=== PATIENT | male | born 1970 | race Caucasian/White ===

== ENCOUNTER → 2017-06-27 10:01 | Outpatient (CLI) | payer MEDICAID, SELFPAY ==
[2017-06-27 10:17] LABS: Basophils # 0.1 K/mm3 (0-0.2); Basophils % 0.6 % (0.1-2.0); Eosinophils # 0.1 K/mm3 (0.0-0.4); Eosinophils % 1.4 % (0.1-12.0); Hemoglobin 16.3 g/dL (14.1-18.0); Lymphocytes # 2.5 K/mm3 (0.7-4.5); Lymphocytes % 30.1 K/mm3 (10-50); Mean Corpuscular HGB Conc 33.3 g/dL (31.8-35.4); Mean Corpuscular Hemoglobin 29.9 pg (27.0-31.2); Mean Corpuscular Volume 89.9 fl (80-94); Mean Platelet Volume 7.4 fl (7.4-10.4); Monocytes # 0.5 K/mm3 (0.1-1.0); Monocytes % 6.5 % (1.7-9.3); Neutrophils % 61.3 % (37.0-80.0); Platelet Count 208 K/mm3 (142-424); Red Blood Count 5.45 M/mm3 (4.60-6.20); Red Cell Distribution Width 12.4 % (11.5-17.5); White Blood Count 8.2 K/mm3 (4.8-10.8)
[2017-06-27 11:48] LABS: Anion Gap 8.5 mEq/L (5-15); Blood Urea Nitrogen 6 mg/dL (7-18); Carbon Dioxide 32 mmol/L (21.0-32.0); Chloride 100 mmol/L (98-107); Creatinine,Serum 0.78 mg/dL (0.70-1.30); Estimated Glomerular Filt Rate 106 ml/min (>60); GFR (African American) 128 ML/MIN (>60); Glucose 87 mg/dL (74-106); Potassium 4.5 mmoL/L (3.5-5.1); Sodium 136 mmol/L (136-145)
== END ==
PROVIDERS: PCP Family Medicine; Visit Provider Surgery
DX: L72.9 Follicular cyst of the skin and subcutaneous tissue, unspecified (principal); Z01.818 Encounter for other preprocedural examination
CPT/HCPCS: 36415; 80048; 85025; 93005

== ENCOUNTER 2017-07-08 07:52 | Day surgery (SDC) | payer MEDICAID, SELFPAY ==
[2017-07-05 13:25] VITALS: BMI 23.5
[2017-07-08] VITALS (13 sets, daily range): BP systolic 132–157; BP diastolic 77–99; PULSE 70–86; RESP 12–18; TEMP 36.4–36.8; O2SAT 95–99
--- NOTE | 2017-07-08 09:32 | HMH.OPNOTE ---
Date of procedure: 07/08/17 Pre-op Diagnosis:: Right posterior neck cyst (2 cm) Post-op diagnosis:: same Procedure performed:: Excision of right posterior neck cyst Surgeon:: Too Alvarez MD MANAGER MARKET INTELLIGENCE:: Joey Lincoln Anesthesia: LMA Estimated blood loss (mL): 5 Operative findings:: Lesion excised in toto and passed off for pathologic evaluation Operative note:: After informed consent was obtained, the patient was taken to the operating room and placed in the supine position. General anesthesia with laryngeal mask airway was achieved. The patient was transferred to the left lateral decubitus position his neck was prepped and draped in a sterile fashion. After infiltration with local anesthetic an elliptical incision was made around the lesion. The lesion was excised with combination of sharp dissection with scalpel and electrocautery. The dissection was taken through the deeper subcutaneous tissue to the level of the fascial margin. Once the lesion was removed, electrocautery was utilized to achieve hemostasis. Skin was closed with 4-0 nylon in an interrupted fashion. Things were applied and the patient was transferred to recovery in stable condition. Condition: stable Disposition: PACU Specimens:: Right posterior neck cyst (2 cm) Complications:: No immediate
--- NOTE | 2017-07-08 09:35 | P.OP_ITS ---
Date of procedure: 07/08/17 Pre-op Diagnosis:: Right posterior neck cyst (2 cm) Post-op diagnosis:: same Procedure performed:: Excision of right posterior neck cyst Surgeon:: Too Alvarez MD SAFETY INSTRUCTION POLICE OFFICER:: Joey Lincoln Anesthesia: LMA Estimated blood loss (mL): 5 Operative findings:: Lesion excised in toto and passed off for pathologic evaluation Operative note:: After informed consent was obtained, the patient was taken to the operating room and placed in the supine position. General anesthesia with laryngeal mask airway was achieved. The patient was transferred to the left lateral decubitus position his neck was prepped and draped in a sterile fashion. After infiltration with local anesthetic an elliptical incision was made around the lesion. The lesion was excised with combination of sharp dissection with scalpel and electrocautery. The dissection was taken through the deeper subcutaneous tissue to the level of the fascial margin. Once the lesion was removed, electrocautery was utilized to achieve hemostasis. Skin was closed with 4-0 nylon in an interrupted fashion. Things were applied and the patient was transferred to recovery in stable condition. Condition: stable Disposition: PACU Specimens:: Right posterior neck cyst (2 cm) Complications:: No immediate
--- NOTE | 2017-07-08 09:42 | HMH.ANESI ---
[facility] Anesthesia Record Part I Intake, IV Amount: 900 Estimated blood loss (mL): 20 Urine output (mL): 0 Blood Pressure: 155/89 SaO2: 97 Pulse Rate: 78 Respiratory Rate: 12 Temperature: 97.8 F Patient is:: Awake, Stable Stable to PACU at:: 09:40
--- NOTE | 2017-07-08 09:44 | P.PN_ITS ---
[facility] Anesthesia Record Part II Discharge Time: 10:10 Destination: [facility] PACU nurse assessment reviewed?: Yes Patient Condition:: Good Anesthesia Complications:: None
--- NOTE | 2017-07-08 09:44 | HMH.ANESII ---
[facility] Anesthesia Record Part II Discharge Time: 10:10 Destination: [facility] PACU nurse assessment reviewed?: Yes Patient Condition:: Good Anesthesia Complications:: None
== END 2017-07-08 11:10 | disposition home or self-care (01) ==
LOC: OR 07:54
PROVIDERS: Family Provider Family Medicine; PCP Family Medicine; Visit Provider Surgery
PROC: (CPT 11422; principal; 2017-07-08 09:15)
DX: D48.5 Neoplasm of uncertain behavior of skin (principal)
CPT/HCPCS: 11422; 96374; J2405

== ENCOUNTER → 2018-06-30 09:47 | Outpatient (CLI) | payer MEDICAID, SELFPAY ==
--- NOTE | 2018-06-30 09:52 | XR_ITS ---
XR hand LT min 3V HISTORY: ITS.REASON: Lt hand pain ORDERING PHYSICIAN: Jeniffer Segovia MD PATIENT AGE: 48 years COMPARISON: None FINDINGS: No fracture or dislocation. There is normal mineralization.. The joint spaces are well-preserved. No significant degenerative/arthritic changes. There is a defect at the tip of the distal phalanx of the third finger which may be due to an old injury. No abnormal soft tissue calcification or other significant anomalies. IMPRESSION: Small defect at the tip of the distal phalanx of the third digit which may be due to an old injury otherwise negative
== END ==
PROVIDERS: PCP Family Medicine; Visit Provider Orthopaedic Surgery
DX: M79.642 Pain in left hand (principal)
CPT/HCPCS: 73130

== ENCOUNTER 2020-05-25 18:32 | Observation (INO) | payer OTHER, SELFPAY ==
[2020-05-25] VITALS (8 sets, daily range): BP systolic 122–146; BP diastolic 61–79; PULSE 71–100; RESP 15–20; TEMP 36.7–36.9; O2SAT 96–100; BMI 24.3; BMI 21.4
--- NOTE | 2020-05-25 | ECG_ITS ---
APPROVED REPORT Exam: Resting ECG HR:95 bpm ECG Measurements Heart Rate 95 AXES MD 130 P 74 QRSd 88 QRS 87 QT 364 T 81 QTc 457 Conclusion Normal sinus rhythm Normal ECG Electronically signed by : Darian Sexton, 05/26/2020 06:55:51
--- NOTE | 2020-05-25 18:33 | XR_ITS ---
PROCEDURE: XR CHEST PORTABLE CLINICAL HISTORY: cp Chest pain COMPARISON: No exams were available for comparison FINDINGS: The cardiomediastinal silhouette and pulmonary vascularity are within normal limits. The lungs are clear without infiltrates, suspicious nodules, or pleural effusions. No acute bony abnormalities. IMPRESSION: No acute findings. Dictated by: Manjit Hilton MD 05/26/2020 05:03 Manjit Hilton MD in OV 05/26/2020 05:03
--- NOTE | 2020-05-25 18:34 | HMH.EDGENADL ---
ED Disposition Condition on Discharge: Good - Critical Care Critical Care Time: No <Zeferino Leroy - Last Filed: 05/25/20 19:17> <Td Ahn - Last Filed: 05/25/20 21:08> Clinical Impression: Alcohol use, Tobacco use Chest pain Qualifiers: Chest pain type: unspecified Qualified Code(s): R07.9 - Chest pain, unspecified Disposition: Admitted as Observation Referrals: Darian Faulkner MD [Primary Care Provider] - Attestation: On 05/25/20, the high probability of a clinically significant, sudden or life threatening deterioration of the following system(s) required my full and direct attention, intervention and personal management. The time I documented below is in addition to time spent performing reported procedures but includes the following listed in this critical care notation. Medical Decision Making - Medical Records Medical records reviewed: Yes: I reviewed the patient's medical records. - Antonio Inquiry Pt receiving controlled substance: No - Lab Data Lab results reviewed: Yes: I reviewed the patient's lab results. Result diagrams: 05/25/20 18:30 05/25/20 18:30 <Zeferino Leroy - Last Filed: 05/25/20 19:17> - Lab Data Result diagrams: 05/25/20 18:30 05/25/20 18:30 - ECG Data Tracing #1 I reviewed this ECG and interpreted as documented below: Normal Sinus Rhythm: Yes Ischemic changes: non-specific ST-T wave changes - Physician Consults Physician Consulted: neus Reason -: Admission - VI Score for Non-Stemi Age of Patient: 50-59 years old Heart Rate: 70-89 bpm Systolic Blood Pressure: 120-139 mmhg Serum Creatinine: 0.40-0.79 mg/dl CHF Killip Class: I-No CHF Other Risk Factors: None Non-Stemi Risk Score: 88 <Td Ahn - Last Filed: 05/25/20 21:08> Vital Signs: 05/25/20 18:32 05/25/20 19:02 05/25/20 19:32 Temperature 98.3 F Temperature Source Oral Pulse Rate [Right] 88 85 83 Respiratory Rate 16 15 16 Blood Pressure [Right Arm] 122/76 128/71 132/72 Blood Pressure Mean [Right Arm] 91 90 92 Blood Pressure Source [Right Arm] Automatic Cuff Automatic Cuff Automatic Cuff Blood Pressure Position [Right Arm] Sitting Sitting Sitting 02 Sat by Pulse Oximetry 100 96 96 Oxygen Delivery Method Room Air Room Air Room Air 05/25/20 20:00 05/25/20 20:30 Temperature Temperature Source Pulse Rate [Right] 71 83 Respiratory Rate 16 16 Blood Pressure [Right Arm] 128/61 123/68 Blood Pressure Mean [Right Arm] 83 86 Blood Pressure Source [Right Arm] Automatic Cuff Automatic Cuff Blood Pressure Position [Right Arm] Sitting Sitting 02 Sat by Pulse Oximetry 98 97 Oxygen Delivery Method Room Air Room Air - Lab Data Lab Results 05/25/20 18:30: Troponin I < 0.01 05/25/20 18:30: WBC 8.4, RBC 5.16, Hgb 16.6, Hct 48.1, MCV 93.3, MCH 32.2 H, MCHC 34.6, RDW 13.4, Plt Count 249, MPV 7.2 L, Neut % (Auto) 56.3, Lymph % (Auto) 32.4, Adams % (Auto) 5.5, Eos % (Auto) 4.8, Baso % (Auto) 1.1, Neut # (Auto) 4.7, Lymph # (Auto) 2.7, Adams # (Auto) 0.5, Eos # (Auto) 0.4, Baso # (Auto) 0.1 05/25/20 18:30: Sodium 131 L, Potassium 3.9, Chloride 96 L, Carbon Dioxide 27, Anion Gap 11.9, BUN 4 L, Creatinine 0.70, Estimated Creat Clear 127, Estimated GFR 118, Est GFR ( Amer) 143, Glucose 92, Calcium 9.2, Total Bilirubin 0.5, AST 56, ALT 26, Alkaline Phosphatase 61, Total Protein 7.1, Albumin 4.4, Globulin 2.7, Albumin/Globulin Ratio 1.6 05/25/20 18:30: Plasma/Serum Alcohol 141 H Orders (Tests/Meds): ED MEDICATIONS Generic Name Dose Route Start Last Admin Trade Name Freq PRN Reason Stop Dose Admin Lactated Ringer's 500 mls @ 999 mls/hr 05/25/20 18:45 05/25/20 19:32 Lactated Ringer's 1000 Ml Bag IV 05/25/20 19:15 999 mls/hr .Q31M ROBERT Administration Sodium Chloride 10 ml 05/25/20 18:34 Sodium Chloride 0.9% 10ml Vial IV 06/24/20 18:33 NEEDED PRN to Dilute Lorazepam inj Discontinued Medications Generic Name Dose Route Start Last Admin Tr
[2020-05-25 18:54] LABS: Basophils # 0.1 K/mm3 (0-0.2); Basophils % 1.1 % (0.1-2.0); Eosinophils # 0.4 K/mm3 (0.0-0.4); Eosinophils % 4.8 % (0.1-12.0); Hematocrit 48.1 % (42.0-52.0); Hemoglobin 16.6 g/dL (14.1-18.0); Lymphocytes # 2.7 K/mm3 (0.7-4.5); Lymphocytes % 32.4 % (10-50); Mean Corpuscular HGB Conc 34.6 g/dL (31.8-35.4); Mean Corpuscular Hemoglobin 32.2 pg (27.0-31.2); Mean Corpuscular Volume 93.3 fl (80-94); Mean Platelet Volume 7.2 fl (7.4-10.4); Monocytes # 0.5 K/mm3 (0.1-1.0); Monocytes % 5.5 % (1.7-9.3); Neutrophils # 4.7 K/mm3 (1.8-7.8); Neutrophils % 56.3 % (37.0-80.0); Platelet Count 249 K/mm3 (142-424); Red Blood Count 5.16 M/mm3 (4.60-6.20); Red Cell Distribution Width 13.4 % (11.5-17.5); White Blood Count 8.4 K/mm3 (4.8-10.8)
[2020-05-25 18:57] LABS: Chloride 96 mmol/L (98-107); Sodium 131 mmol/L (136-145)
[2020-05-25 18:58] LABS: Potassium 3.9 mmoL/L (3.5-5.1)
[2020-05-25 19:00] LABS: Alanine Aminotransferase 26 U/L (12-78); Albumin Level 4.4 g/dl (3.5-5.0); Albumin/Globulin Ratio 1.6 (1.1-1.8); Alkaline Phosphatase 61 U/L (38-126); Anion Gap 11.9 mEq/L (5-15); Aspartate Amino Transferase 56 U/L (17-59); Bilirubin,Total 0.5 mg/dl (0.2-1.3); Blood Urea Nitrogen 4 mg/dl (9-20); Carbon Dioxide 27 mmol/L (22.0-30.0); Creatinine Clearance Estimated 127 mL/min (50-200); Estimated Glomerular Filt Rate 118 ml/min (>60); Ethyl Alcohol 141 mg/dl (0-10); GFR (African American) 143 ML/MIN (>60); Globulin 2.7 g/dL (1.3-3.2); Total Protein,Serum 7.1 g/dl (6.3-8.2)
[2020-05-25 19:01] LABS: Calcium 9.2 mg/dl (8.4-10.2); Glucose 92 mg/dl (74-100)
[2020-05-25 19:33] LABS: Troponin I < 0.01 ng/ml (0.00-0.034)
--- NOTE | 2020-05-25 20:46 | PC.NURSE ---
pt family member asked if pt was going to be discharged soon. this nurse explained that the pts trop level was taking longer than expected due to trouble with the machine in the lab and apologized for the inconvenience
[2020-05-25 21:36] LABS: Coronavirus 19 IgG Antibody Negative (Negative); Coronavirus 19 IgM Antibody Negative (Negative)
--- NOTE | 2020-05-25 22:23 | PC.NURSE ---
PT ARRIVED TO FLOOR VIA WHEELCHAIR @ [id number]
[2020-05-25 22:58] LABS: Troponin I < 0.01 ng/ml (0.00-0.034)
[2020-05-26] VITALS (18 sets, daily range): BP systolic 125–150; BP diastolic 63–114; PULSE 72–116; RESP 16–20; TEMP 36.6–37.3; O2SAT 94–100; BMI 21.4
--- NOTE | 2020-05-26 | IR_ITS ---
APPROVED REPORT Patient Location: Inpatient PROCEDURES Left heart catheterization Left ventriculogram Selective coronary angiogram Drug-eluting stent deployment to the proximal and mid dominant circumflex artery in a contiguous manner Informed consent was obtained prior to the procedure. COMPLICATIONS none Estimated Blood Loss: less than 10 mls TECHNIQUE One percent lidocaine used to anesthetize the right anterior aspect of the wrist. The right radial artery was accessed via the Seldinger technique. A 6 Andorran sheath was placed in the right radial artery. 2.5 mg of verapamil, 800 mcg of nitroglycerin, 1mg Lidocaine and 5000 U Heparin were given through the arterial sheath. The trap catheter was also used to perform left heart catheterization, left ventriculogram and selective coronary angiogram. At the end of the procedure therapeutic heparin was administered giving a therapeutic ACT. A JL 3 guide catheter was placed in the left main artery and a Choice PT extra-support wire was placed distally in the circumflex artery. A 4 mm x 38 mm resolute jaciel stent was deployed in the proximal mid circumflex artery at 14 jalen. Following this a 3.5 x 26 mm resolute jaciel stent was then deployed in the mid segment at 16 jalen further reducing the mid stenosis. The balloon was brought back and deployed at 22 jalen to mesh the 4 mm 3.5 mm stent together. YASMANI-3 flow was present before and after the procedure. At the end of the procedure the apparatus was removed the sheath was removed good hemostasis was achieved using TR banding patient was transferred to the postop holding in stable condition ANGIOGRAPHIC RESULTS The left main artery Normal The left anterior descending artery Has proximal 10 to 20% smooth stenosis with remaining vessel normal The circumflex artery Is a large dominant vessel with a proximal 70% stenosis in the mid vessel 60% stenosis The right coronary artery Nondominant with a proximal 20% smooth stenosis The SANCHEZ ventriculogram reveals Normal 65% The left ventricular end-diastolic pressure 10 mmHg IMPRESSION Severe single-vessel coronary disease involving a large dominant circumflex artery Successful stenting of a large dominant proximal and mid circumflex artery with 2 drug-eluting stents reducing the severe stenosis to 0% Normal ejection fraction Normal left ventricular end-diastolic pressure PLAN 1. Brilinta and aspirin 2. LDL less than 55 3. Beta-blockers and ANGEL inhibitors 4. Avoidance of tobacco products 5. Cardiac rehabilitation Electronically signed by : Bob Vaughn, 05/26/2020 15:04:28
[2020-05-26 01:27] LABS: Troponin I < 0.01 ng/ml (0.00-0.034)
--- NOTE | 2020-05-26 04:18 | PC.NURSE ---
No acute changes noted. Pt has not c/o any chest pain or soa. Pt did state during assessment upon arrival to floor that he did have some heaviness in his chest. Has not required any pain medication thus far. VS are stable. Remains on RA. Lungs are diminished. He is a current smoker. He also drinks alcohol. Pt stated 6-8 beers per day. CIWA 0 at this time. Pt is NSR on telemetry. Will continue to monitor.
[2020-05-26 05:49] LABS: Basophils # 0.1 K/mm3 (0-0.2); Basophils % 1.1 % (0.1-2.0); Eosinophils # 0.2 K/mm3 (0.0-0.4); Eosinophils % 2.9 % (0.1-12.0); Hematocrit 47.5 % (42.0-52.0); Hemoglobin 16.1 g/dL (14.1-18.0); Lymphocytes # 1.3 K/mm3 (0.7-4.5); Lymphocytes % 17.5 % (10-50); Mean Corpuscular Hemoglobin 31.6 pg (27.0-31.2); Mean Corpuscular Volume 92.9 fl (80-94); Mean Platelet Volume 7.5 fl (7.4-10.4); Monocytes # 0.6 K/mm3 (0.1-1.0); Monocytes % 7.9 % (1.7-9.3); Neutrophils # 5.2 K/mm3 (1.8-7.8); Neutrophils % 70.5 % (37.0-80.0); Platelet Count 211 K/mm3 (142-424); Red Blood Count 5.11 M/mm3 (4.60-6.20); Red Cell Distribution Width 13.2 % (11.5-17.5); White Blood Count 7.4 K/mm3 (4.8-10.8)
[2020-05-26 06:00] LABS: Anion Gap 9.6 mEq/L (5-15); Blood Urea Nitrogen 4 mg/dl (9-20); Calcium 9.3 mg/dl (8.4-10.2); Carbon Dioxide 30 mmol/L (22.0-30.0); Chloride 100 mmol/L (98-107); Chol/HDL Ratio 1.9 (1-3.5); Cholesterol 168 mg/dl (140-200); Creatinine Clearance Estimated 125 mL/min (50-200); Estimated Glomerular Filt Rate 118 ml/min (>60); GFR (African American) 143 ML/MIN (>60); Glucose 91 mg/dl (74-100); HDL Cholesterol 88 mg/dl (40-60); Magnesium 2.7 mg/dl (1.6-2.3); Potassium 4.6 mmoL/L (3.5-5.1); Sodium 135 mmol/L (136-145); Triglycerides 51 mg/dl (30-150); VLDL Cholesterol 10 mg/dL (0-40)
[2020-05-26 06:10] LABS: Direct LDL Cholesterol 73.65 mg/dL (100-129)
--- NOTE | 2020-05-26 07:45 | HMH.HP ---
*Admission Date: 05/25/20 *Chief complaint: Burning chest pressure *History of present illness: 50-year-old male who has not actually been to the office in several years presented to the emergency department via EMS after onset of a burning chest tightness that was anterior and spread across the chest. Pain was not relieved with Maalox at home. Pain did resolve a few minutes after being administered aspirin and nitroglycerin by EMS. Patient was brought to the emergency department. EKG was unrevealing and troponin was negative. Patient was admitted for rule out of an [place] with serial EKG and enzymes. Patient is ruled out overnight. He has not had any further chest discomfort and currently is in process of getting in echocardiogram. Cardiovascular risk factors include a 48-nfec-frya history of smoking and positive family history with a father dying from a heart attack at age 62 and a brother with known coronary artery disease [facility] History I have reviewed the patient's past medical history: Yes Medical History: Denies:: Cancer, Diabetes Mellitus Type 1, Diabetes Mellitus Type 2, MRSA, Seizures *Have you ever received a pneumonia vaccine?: No *Have you received a flu vaccine this season?: No Other Medical History: Denies: Blood Transfusion Reaction Laterality Cases: Right: Arthroscopy Knee, Bilateral: Tonsillectomy Other Surgeries: Yes: Hernia Repair, Other Amputation: No Fractures: No - *Social History Last grade of school completed: High school graduate Smoking Status: Current some day smoker Tobacco Type: cigarettes # Packs/Day (cigarettes): 2 Alcohol Intake: current Alcohol Intake Frequency:: 3 or more drinks per day Substance Use Type: denies use *Occupational Status:: employed Housing: house Household Members: spouse *Travel in the last 8 weeks: None Family Hx:: Cancer, Diabetes, Heart Attack, Hypertension Review of Systems - Constitutional Denies anorexia, Denies body ache(s), Denies chills, Denies lack of energy - *Cardiovascular Reports chest pain, Reports chest pain at rest, Denies excessive sweating, Denies shortness of breath with activity, Denies generalized swelling, Denies irregular heart rhythm - *Respiratory Denies change in phlegm color, Denies chest congestion, Denies cough - *Gastrointestinal Denies belching, Denies heartburn - *Genitourinary Denies difficulty urinating - Integumentary/Breasts Denies hair loss, Denies bleeding lesions - Psychiatric Denies abnormal sleep pattern Meds Home Medications Medication Instructions Recorded Confirmed Type No Known Home Medications 06/27/17 05/25/20 History Allergies Allergy/AdvReac Type Severity Reaction Status Date / Time No Known Allergies Allergy Verified 05/25/20 22:03 Exam Vital signs and Labs for Last 24 Hours: Temp Pulse Resp BP Pulse Ox 99.1 F 92 H 18 141/85 H 94 L 05/26/20 04:00 05/26/20 04:00 05/26/20 04:00 05/26/20 04:00 05/26/20 04:00 Laboratory Results - last 24 hr 05/25/20 18:30: Troponin I < 0.01 05/25/20 18:30: WBC 8.4, RBC 5.16, Hgb 16.6, Hct 48.1, MCV 93.3, MCH 32.2 H, MCHC 34.6, RDW 13.4, Plt Count 249, MPV 7.2 L, Neut % (Auto) 56.3, Lymph % (Auto) 32.4, Anson % (Auto) 5.5, Eos % (Auto) 4.8, Baso % (Auto) 1.1, Neut # (Auto) 4.7, Lymph # (Auto) 2.7, Anson # (Auto) 0.5, Eos # (Auto) 0.4, Baso # (Auto) 0.1 05/25/20 18:30: Sodium 131 L, Potassium 3.9, Chloride 96 L, Carbon Dioxide 27, Anion Gap 11.9, BUN 4 L, Creatinine 0.70, Estimated Creat Clear 127, Estimated GFR 118, Est GFR ( Amer) 143, Glucose 92, Calcium 9.2, Total Bilirubin 0.5, AST 56, ALT 26, Alkaline Phosphatase 61, Total Protein 7.1, Albumin 4.4, Globulin 2.7, Albumin/Globulin Ratio 1.6 05/25/20 18:30: Plasma/Serum Alcohol 141 H 05/25/20 18:40: SARS-CoV-2 IgG Ab (Rapid) Negative, SARS-CoV-2 IgM Ab (Rapid) Negative 05/25/20 22:12: Troponin I < 0.01 05/26/20 00:50: Troponin I < 0.01 05/26/20 05:28: WBC 7.4, RBC 5.11, Hgb 16.1, Hct 47.5, MCV 9
--- NOTE | 2020-05-26 08:00 | CA_ITS ---
APPROVED REPORT EXAM: Comprehensive 2D, Doppler, and color-flow Echocardiogram Protective Service Specialist: Felicia Cabrera CRT Ht: 5 ft 8 in Wt: 160lbs BSA: 1.86 BP: 123/68 mmHg Indications: Chest Pain, DNI, Alcholism 2D Dimensions LVOT 1.82 cm (M/F) 1.5-2.5 M-Mode Dimensions RVDd 2.79 cm (0.9-2.6) LA Diam 2.89 cm (1.9-4.0) LVDd 4.91 cm (3.5-5.7) Ao Diam 4.05 cm (2.0-3.7) LVDs 4.10 cm (3.5-5.7) IVSd 1.28 cm (0.6-1.1) PWd 0.61 cm (0.6-1.1) EF (Teich) 34.60% FS 16.50% EDV (Teich) 113.40 mL ESV (Teich) 74.20 mL LV Diastology E Decel Time 150.00 (160-240 msec) E/A Ratio 0.68 MED E' 7.30 (< 7 cm/sec) E'/MED E' Ratio 5.92 (>14) LAT E' 11.40 (<10 cm/sec) E/LAT E' Ratio 3.79 (>14) Aortic Valve AO Peak GR. 3.10 mmHg Mitral Valve MV E Max Ignacio. 43.00 (40-130 cm/s) MV A Velocity 64.00 (40-130 cm/s) E/A Ratio 0.68 MV Decel. Time 150.00 (160-240 ms) MV PHT 44.00 ms Tricuspid Valve TR P. Velocity 101.00 cm/s Left Ventricle Left atrium is normal size, left ventricle is normal size, there is no concentric left ventricular hypertrophy, visually estimated ejection fraction 55% with no regional wall motion abnormality, diastolic parameters are inconclusive. Right Ventricle Right atrium and right ventricle are normal size and contractility. Aortic Valve Aortic valve is minimally thickened and fibrosed. There is no aortic stenosis or aortic insufficiency. Mitral Valve Mitral valve is grossly normal, there is trace mitral regurgitation. Tricuspid Valve Tricuspid valve grossly normal, there is trace tricuspid regurgitation, tricuspid regurgitation jet velocity is inadequate for calculation of the right ventricular systolic pressure. Pulmonic Valve Pulmonic valve is poorly visualized. Great Vessels Aortic root is normal size. Pericardium No significant pericardial effusion noted. Conclusion 1. Normal left ventricular size, preserved left ventricular systolic function, visually estimated ejection fraction 55% with no regional wall motion abnormality, diastolic parameters are inconclusive. 2. Trace mitral and tricuspid regurgitation. 3. No significant pericardial effusion noted. Electronically signed by : Kaleb Iqbal, 05/27/2020 05:40:16
--- NOTE | 2020-05-26 08:22 | HMH.CNCARD ---
History of Present Illness Consult date: 05/26/20 Requesting physician: Darian Faulkner Consult reason: chest pain Chief complaint: chest pain Additional Medical History:: 1. Strong family history of coronary artery disease, father at age 62 from a heart attack and brother with history of heart attack at age 52 2. Tobacco use, 1 to 2 packs/day 3. Daily alcohol use of 6 beers per day History of present illness: 50-year-old male who has not actually been to the office in several years presented to the emergency department via EMS after onset of a burning chest tightness that was anterior and spread across the chest. Pain was not relieved with Maalox at home. Pain did resolve a few minutes after being administered aspirin and nitroglycerin by EMS. Patient was brought to the emergency department. EKG was unrevealing and troponin was negative. Patient was admitted for rule out of an [place] with serial EKG and enzymes. Patient is ruled out overnight. He has not had any further chest discomfort and currently is in process of getting in echocardiogram. Cardiovascular risk factors include a 00-cfop-lggo history of smoking and positive family history with a father dying from a heart attack at age 62 and a brother with known coronary artery disease. The above per Dr. Faulkner. The patient confirms above account. He is very concerned about CAD due to strong FH of CAD in addition to his smoking. He denies any recent fever, chills, nausea, vomiting or diarrhea. [facility] History Medical History: Denies:: Cancer, Diabetes Mellitus Type 1, Diabetes Mellitus Type 2, MRSA, Seizures *Have you ever received a pneumonia vaccine?: No *Have you received a flu vaccine this season?: No Other Medical History: Denies: Blood Transfusion Reaction Laterality Cases: Right: Arthroscopy Knee, Bilateral: Tonsillectomy Other Surgeries: Yes: Hernia Repair, Other Amputation: No Fractures: No - *Social History Last grade of school completed: High school graduate Smoking Status: Current some day smoker Tobacco Type: cigarettes # Packs/Day (cigarettes): 2 Alcohol Intake: current Alcohol Intake Frequency:: 3 or more drinks per day Substance Use Type: denies use *Occupational Status:: employed Housing: house Household Members: spouse *Travel in the last 8 weeks: None Family Hx:: Cancer, Diabetes, Heart Attack, Hypertension Meds Home Medications Medication Instructions Recorded Confirmed Type No Known Home Medications 06/27/17 05/25/20 History Allergies Allergy/AdvReac Type Severity Reaction Status Date / Time No Known Allergies Allergy Verified 05/25/20 22:03 Exam Vital signs and Labs for Last 24 Hours: Temp Pulse Resp BP Pulse Ox 97.9 F 85 16 139/85 98 05/26/20 08:00 05/26/20 08:00 05/26/20 08:00 05/26/20 08:00 05/26/20 08:00 Laboratory Results - last 24 hr 05/25/20 18:30: Troponin I < 0.01 05/25/20 18:30: WBC 8.4, RBC 5.16, Hgb 16.6, Hct 48.1, MCV 93.3, MCH 32.2 H, MCHC 34.6, RDW 13.4, Plt Count 249, MPV 7.2 L, Neut % (Auto) 56.3, Lymph % (Auto) 32.4, Ellsworth % (Auto) 5.5, Eos % (Auto) 4.8, Baso % (Auto) 1.1, Neut # (Auto) 4.7, Lymph # (Auto) 2.7, Ellsworth # (Auto) 0.5, Eos # (Auto) 0.4, Baso # (Auto) 0.1 05/25/20 18:30: Sodium 131 L, Potassium 3.9, Chloride 96 L, Carbon Dioxide 27, Anion Gap 11.9, BUN 4 L, Creatinine 0.70, Estimated Creat Clear 127, Estimated GFR 118, Est GFR ( Amer) 143, Glucose 92, Calcium 9.2, Total Bilirubin 0.5, AST 56, ALT 26, Alkaline Phosphatase 61, Total Protein 7.1, Albumin 4.4, Globulin 2.7, Albumin/Globulin Ratio 1.6 05/25/20 18:30: Plasma/Serum Alcohol 141 H 05/25/20 18:40: SARS-CoV-2 IgG Ab (Rapid) Negative, SARS-CoV-2 IgM Ab (Rapid) Negative 05/25/20 22:12: Troponin I < 0.01 05/26/20 00:50: Troponin I < 0.01 05/26/20 05:28: WBC 7.4, RBC 5.11, Hgb 16.1, Hct 47.5, MCV 92.9, MCH 31.6 H, MCHC 34.0, RDW 13.2, Plt Count 211, MPV 7.5, Neut % (Auto) 70.5, Lymph % (Auto) 17.5, Ellsworth % (Auto) 7.9, Eos % (Auto) 2.
--- NOTE | 2020-05-26 08:57 | PC.NURSE ---
PT shaved for cath.
--- NOTE | 2020-05-26 09:15 | PC.NURSE ---
Report received from ROSENDO Peguero.
--- NOTE | 2020-05-26 13:45 | P.CONPHA_ITS ---
[facility] Pharmacy VTE Monitoring - Patient Demographics Admission date: 05/26/20 Report Date: 05/26/20 Time: 13:45 Allergies/Adverse Reactions: Patient Allergies No Known Allergies Allergy (Verified 05/25/20 22:03) Height: 1.83 m Weight: 71.668 kg Patient Problems: Current Active Problems Chest pain (Acute) Alcohol use (Acute) Tobacco use (Acute) Angina at rest (Acute) Family history of coronary artery disease in brother (Acute) Family history of coronary artery disease in father (Acute) - VTE Risk Labs: VTE Related Lab Results Hgb 16.1 g/dL (14.1-18.0) 05/26/20 05:28 Hct 47.5 % (42.0-52.0) 05/26/20 05:28 Plt Count 211 K/mm3 (142-424) 05/26/20 05:28 BUN 4 mg/dl (9-20) L 05/26/20 05:28 Creatinine 0.70 mg/dl (0.66-1.25) 05/26/20 05:28 Estimated Creat Clear 125 mL/min (50-200) 05/26/20 05:28 Was VTE Risk Assessment Performed: Yes VTE Score: 1 VTE Risk Level: Very Low Risk Clinical Trial Participant: No - Prophylaxis VTE Prophylaxis Ordered?: Yes Types of VTE Prophylaxis: TEDS Knee High Location of Applied Device: Bilateral Lower Extremeties
--- NOTE | 2020-05-26 14:25 | PC.NURSE ---
Pt taken to [facility] via w/c at this time by [facility] personnel.
[2020-05-26 15:11] LABS: CATHL Activated Clotting Time > 400 SEC (74-125)
--- NOTE | 2020-05-26 15:30 | PC.NURSE ---
Pt returned to floor via stretcher per agriculture laboratory technician personnel.
--- NOTE | 2020-05-26 16:00 | PC.NURSE ---
2MLS REMOVED FROM PESSURE DEVICE (RT WRIST)
--- NOTE | 2020-05-26 16:20 | PC.NURSE ---
2MLS OF AIR REMOVED FROM PRESSURE DEVICE.
--- NOTE | 2020-05-26 16:50 | PC.NURSE ---
2MLS REMOVED FROM PRESSURE DEVICE. NO LEAKAGE OR BLEEDING NOTED.
--- NOTE | 2020-05-26 17:22 | PC.NURSE ---
2MLS REMOVED FROM PRESSURE DEVICE (NO LEAKAGE NOTED).
--- NOTE | 2020-05-26 17:55 | PC.NURSE ---
2MLS OF AIR REMOVED FROM PRESSURE DEVICE (NO BLEEDING OR LEAKAGE NOTED)
--- NOTE | 2020-05-26 18:18 | PC.NURSE ---
2MLS REMOVED FROM PRESSURE DEVICE. NO BLEEDING NOTED.
--- NOTE | 2020-05-26 18:45 | PC.NURSE ---
2MLS OF AIR REMOVED FROM PRESSURE DEVICE. NO BLEEDING OR LEAKING NOTED.
--- NOTE | 2020-05-26 19:08 | PC.NURSE ---
REPORT GIVEN TO TECHNICAL DELIVERY MANAGER NURSE
[2020-05-27] VITALS: BP 139/79; PULSE 73; RESP 18; TEMP 36.4; O2SAT 98
--- NOTE | 2020-05-27 02:10 | PC.NURSE ---
2200- removed 2 ml of air from radialband 2230- removed 1 ml of air from radialband, noticed some oozing at site, added 3 ml of air 2330- removed 2ml of air from radialband 0015- removed 2ml of air from radialband 0050- removed 2ml of air from radialband no oozing at site at this time
[2020-05-27 04:00] VITALS: BP 131/80; PULSE 72; RESP 19; TEMP 36.4; O2SAT 99
[2020-05-27 05:02] VITALS: BMI 21.3
--- NOTE | 2020-05-27 06:45 | HMH.DCSUM ---
General - General Admission date:: 05/25/20 Discharge date: 05/27/20 HPI HPI: 50-year-old male who has not actually been to the office in several years presented to the emergency department via EMS after onset of a burning chest tightness that was anterior and spread across the chest. Pain was not relieved with Maalox at home. Pain did resolve a few minutes after being administered aspirin and nitroglycerin by EMS. Patient was brought to the emergency department. EKG was unrevealing and troponin was negative. Patient was admitted for rule out of an VA with serial EKG and enzymes. Patient is ruled out overnight. He has not had any further chest discomfort and currently is in process of getting in echocardiogram. Cardiovascular risk factors include a [id number] history of smoking and positive family history with a father dying from a heart attack at age 62 and a brother with known coronary artery disease Hospital Course Hospital Course: Patient ruled out for VA. Due to strong family history, smoking history, and presentation of angina patient was taken to the Otolaryngology Teacher with findings as follows: ANGIOGRAPHIC RESULTS The left main artery Normal The left anterior descending artery Has proximal 10 to 20% smooth stenosis with remaining vessel normal The circumflex artery Is a large dominant vessel with a proximal 70% stenosis in the mid vessel 60% stenosis The right coronary artery Nondominant with a proximal 20% smooth stenosis The SANCHEZ ventriculogram reveals Normal 65% The left ventricular end-diastolic pressure 10 mmHg IMPRESSION Severe single-vessel coronary disease involving a large dominant circumflex artery Successful stenting of a large dominant proximal and mid circumflex artery with 2 drug-eluting stents reducing the severe stenosis to 0% Normal ejection fraction Normal left ventricular end-diastolic pressure PLAN 1. Brilinta and aspirin 2. LDL less than 55 3. Beta-blockers and ANGEL inhibitors 4. Avoidance of tobacco products 5. Cardiac rehabilitation Patient was observed after his left heart catheterization. There were no complications. Discussion was had with patient about the importance of smoking cessation and he is going to make attempts to cut back . He did consent to use of nicotine patches. Patient was discharged home on the morning of May 27. Patient will follow up with Dr. Vaughn's office in my office in 1 week Objective Vital signs: Temp Pulse Resp BP Pulse Ox 97.6 F 72 19 131/80 99 05/27/20 04:00 05/27/20 04:00 05/27/20 04:00 05/27/20 04:00 05/27/20 04:00 no acute distress - *Routine Respiratory Exam Present: CTA bilaterally - *Routine Cardiovascular Exam Present: RRR - *Routine Abdominal Exam Present: soft, normoactive bowel sounds. Absent: tenderness Results Labs on day of discharge: Labs from last 24 hours 05/26/20 15:59 Activated Clotting Time > 400 H* DS: Diagnosis - Discharge Diagnosis (1) Angina at rest Status: Acute (2) Family history of coronary artery disease in brother Status: Acute (3) Family history of coronary artery disease in father Status: Acute (4) Alcohol use Status: Acute (5) Tobacco use Status: Acute Discharge Plan - Patient Discharge Instructions ACTIVITY: Continue current activity DIET: continue same diet Patient Instructions: How to Care for a Surgical Wound, Angina, Alcohol Use Disorder, Cardiac Catheterization, Coronary Stenting, Nicotine Addiction, DI for Angina, DI for Surgical Site Infection, DI for Chest Pain - Follow up Plan Follow up with: Darian Faulkner MD [Primary Care Provider] - 06/03/20 Bob Vaughn MD [Staff Physician] - 06/03/20 Disposition: Home, Self-[facility] Medications: Home Medications Medication Instructions Recorded Confirmed Type No Known Home Medications 06/27/17 05/25/20 History Aspirin [Aspirin 81mg chewable 81 mg PO DAILY #
[2020-05-27 06:56] LABS: Basophils # 0.1 K/mm3 (0-0.2); Basophils % 1.4 % (0.1-2.0); Eosinophils # 0.3 K/mm3 (0.0-0.4); Eosinophils % 4.4 % (0.1-12.0); Hematocrit 45.4 % (42.0-52.0); Hemoglobin 15.5 g/dL (14.1-18.0); Lymphocytes # 1.7 K/mm3 (0.7-4.5); Lymphocytes % 22.9 % (10-50); Mean Corpuscular HGB Conc 34.1 g/dL (31.8-35.4); Mean Corpuscular Hemoglobin 31.6 pg (27.0-31.2); Mean Corpuscular Volume 92.8 fl (80-94); Mean Platelet Volume 7.7 fl (7.4-10.4); Monocytes # 0.5 K/mm3 (0.1-1.0); Monocytes % 6.4 % (1.7-9.3); Neutrophils # 4.6 K/mm3 (1.8-7.8); Neutrophils % 64.8 % (37.0-80.0); Platelet Count 202 K/mm3 (142-424); Red Blood Count 4.89 M/mm3 (4.60-6.20); Red Cell Distribution Width 13.5 % (11.5-17.5); White Blood Count 7.2 K/mm3 (4.8-10.8)
[2020-05-27 07:05] LABS: Anion Gap 8.1 mEq/L (5-15); Blood Urea Nitrogen 7 mg/dl (9-20); Calcium 8.9 mg/dl (8.4-10.2); Carbon Dioxide 28 mmol/L (22.0-30.0); Chloride 103 mmol/L (98-107); Creatinine Clearance Estimated 109 mL/min (50-200); Estimated Glomerular Filt Rate 102 ml/min (>60); GFR (African American) 123 ML/MIN (>60); Glucose 93 mg/dl (74-100); Potassium 4.1 mmoL/L (3.5-5.1); Sodium 135 mmol/L (136-145)
--- NOTE | 2020-05-27 07:34 | HMH.PNCARD ---
Subjective Date: 05/27/20 Time: 07:34 Principal diagnosis: Angina pectoris Interval history: 50-year-old male admitted yesterday for unstable angina. Subsequently underwent coronary stenting of the circumflex artery with 2 drug-eluting stents. Symptoms of severe heartburn have resolved and patient feels ready to go home. No complications overnight. Exam Vital signs and Labs for Last 24 Hours: Temp Pulse Resp BP Pulse Ox 97.6 F 72 19 131/80 99 05/27/20 04:00 05/27/20 04:00 05/27/20 04:00 05/27/20 04:00 05/27/20 04:00 Laboratory Results - last 24 hr 05/26/20 15:59: Activated Clotting Time > 400 H* 05/27/20 06:36: WBC 7.2, RBC 4.89, Hgb 15.5, Hct 45.4, MCV 92.8, MCH 31.6 H, MCHC 34.1, RDW 13.5, Plt Count 202, MPV 7.7, Neut % (Auto) 64.8, Lymph % (Auto) 22.9, Emanuel % (Auto) 6.4, Eos % (Auto) 4.4, Baso % (Auto) 1.4, Neut # (Auto) 4.6, Lymph # (Auto) 1.7, Emanuel # (Auto) 0.5, Eos # (Auto) 0.3, Baso # (Auto) 0.1 05/27/20 06:36: Sodium 135 L, Potassium 4.1, Chloride 103, Carbon Dioxide 28, Anion Gap 8.1, BUN 7 L D, Creatinine 0.80, Estimated Creat Clear 109, Estimated GFR 102, Est GFR ( Amer) 123, Glucose 93, Calcium 8.9 I & O for Last 24 hours: Intake & Output 05/24/20 05/25/20 05/26/20 05/27/20 11:59 11:59 11:59 11:59 Intake Total 0 / 0 Output Total 2099 450 / 450 Balance -2099 / -2099 -450 / -450 Weight 158 lb 157 lb 8 oz - Constitutional no acute distress - *Routine HEENT Exam Head: Present: normocephalic Eye: Present: EOMI, PERRL ENT: Present: mucous membranes moist - *Routine Neck Exam Present: supple. Absent: lymphadenopathy - *Routine Respiratory Exam Present: CTA bilaterally - *Routine Cardiovascular Exam Present: RRR - *Routine Abdominal Exam Present: soft, normoactive bowel sounds. Absent: tenderness - *Routine Extremities Exam Absent: cyanosis, clubbing, edema - *Routine Skin Exam Present: warm. Absent: rash - *Routine Neurological Exam Present: alert, oriented X3 Progress Note: A&P (1) Angina at rest Status: Acute (2) Family history of coronary artery disease in brother Status: Acute (3) Family history of coronary artery disease in father Status: Acute (4) Alcohol use Status: Acute (5) Tobacco use Status: Acute Assessment and Plan for All Diagnoses:: Okay for discharge home from cardiology standpoint. Home medication recommendations include aspirin 81 mg daily, Brilinta 90 mg twice daily, atorvastatin 80 mg daily, lisinopril 2.5 mg daily and metoprolol succinate 25 mg daily. Nicotine patches have been ordered with encouragement to discontinue smoking. Follow-up in our office in 1 week or sooner if needed
[2020-05-27 08:00] VITALS: BP 149/78; PULSE 67; RESP 19; TEMP 36.4; O2SAT 99
--- NOTE | 2020-05-27 08:24 | PC.NURSE ---
late entry: received in report that pt had traclet still in place r/t when attempting to remove, site was noted to bleed. [place] unsure of amount that had been instilled in traclet. When i went to remove traclet, only 2 ml of air were noted to be inside. traclet later removed without incident. no bleeding noted. pt was instructed on s/s of infection bleeding and care of cath site. pt indicated understanding.
--- NOTE | 2020-05-27 08:52 | HMH.PHACLD ---
Zeferino Jones has received discharge medication counseling on the following medications: NEW MEDICATIONS: LISINOPRIL, BRILINTA, METOPROLOL, LIPITOR, ASPIRIN
--- NOTE | 2020-05-27 09:00 | PC.NURSE ---
discharge teaching provided with patient on appointment, post cath care, medications. reviewed contents of discharge packet. brilinta card provided to patient. patient and wifevoiced understanding of teachings, no questions from them
== END 2020-05-27 08:51 | disposition home or self-care (01) ==
LOC: ER 21:26 → 2ND 21:32
PROVIDERS: Emergency Medicine; Internal Medicine; Admitting Provider Family Medicine; Emergency Provider Physician Assistant; PCP Family Medicine; Visit Provider Family Medicine
DX: I25.118 Atherosclerotic heart disease of native coronary artery with other forms of angina pectoris (principal); R07.9 Chest pain, unspecified; F10.10 Alcohol abuse, uncomplicated; Z72.0 Tobacco use; Y90.6 Blood alcohol level of 120-199 mg/100 ml; Z82.49 Family history of ischemic heart disease and other diseases of the circulatory system
CPT/HCPCS: 36415; 71045; 80048; 80053; 80061; 83735; 84484; 85025; 85347; 86328; 92928; 93005; 93306; 93458; 96365; 96367; 96375; 99152; 99284; C1725; C1769; C1876; C9600; G0378; J1644; Q9967

== ENCOUNTER → 2020-06-03 14:08 | Outpatient (CLI) | payer OTHER, SELFPAY ==
[2020-06-03 14:24] LABS: Hematocrit 53.8 % (42.0-52.0); Hemoglobin 17.5 g/dL (14.1-18.0)
[2020-06-03 14:35] LABS: Blood Urea Nitrogen 6 mg/dl (9-20); Estimated Glomerular Filt Rate 89 ml/min (>60); GFR (African American) 107 ML/MIN (>60)
== END ==
PROVIDERS: Visit Provider Internal Medicine
DX: I25.10 Atherosclerotic heart disease of native coronary artery without angina pectoris (principal); I10 Essential (primary) hypertension; E78.2 Mixed hyperlipidemia; Z72.0 Tobacco use; F10.29 Alcohol dependence with unspecified alcohol-induced disorder; Z95.5 Presence of coronary angioplasty implant and graft
CPT/HCPCS: 36415; 82565; 84520; 85014; 85018

== ENCOUNTER → 2020-09-02 14:17 | Outpatient (CLI) | payer OTHER, SELFPAY ==
[2020-09-02 14:37] LABS: Basophils # 0.1 K/mm3 (0-0.2); Basophils % 1.3 % (0.1-2.0); Eosinophils # 0.4 K/mm3 (0.0-0.4); Eosinophils % 4.6 % (0.1-12.0); Hematocrit 43.3 % (42.0-52.0); Hemoglobin 14.4 g/dL (14.1-18.0); Lymphocytes # 1.6 K/mm3 (0.7-4.5); Lymphocytes % 20.9 % (10-50); Mean Corpuscular HGB Conc 33.4 g/dL (31.8-35.4); Mean Corpuscular Hemoglobin 31.5 pg (27.0-31.2); Mean Corpuscular Volume 94.3 fl (80-94); Mean Platelet Volume 7.2 fl (7.4-10.4); Monocytes # 0.5 K/mm3 (0.1-1.0); Monocytes % 6.6 % (1.7-9.3); Neutrophils # 5.2 K/mm3 (1.8-7.8); Neutrophils % 66.6 % (37.0-80.0); Platelet Count 262 K/mm3 (142-424); Red Blood Count 4.59 M/mm3 (4.60-6.20); Red Cell Distribution Width 12.7 % (11.5-17.5); White Blood Count 7.8 K/mm3 (4.8-10.8)
[2020-09-02 15:59] LABS: Chloride 97 mmol/L (98-107); Potassium 4.4 mmoL/L (3.5-5.1); Sodium 134 mmol/L (136-145)
[2020-09-02 16:01] LABS: Blood Urea Nitrogen 3 mg/dl (9-20); Estimated Glomerular Filt Rate 118 ml/min (>60); GFR (African American) 143 ML/MIN (>60)
[2020-09-02 16:02] LABS: Alanine Aminotransferase 61 U/L (12-78); Alkaline Phosphatase 66 U/L (38-126); Anion Gap 12.4 mEq/L (5-15); Aspartate Amino Transferase 56 U/L (17-59); Bilirubin,Direct 0.1 mg/dl (0.0-0.4); Bilirubin,Indirect 0.5 mg/dL (0.0-0.9); Bilirubin,Total 0.6 mg/dl (0.2-1.3); Bilirubin,Unconjugated 0.5 mg/dL (0.0-1.1); Calcium 9.8 mg/dl (8.4-10.2); Carbon Dioxide 29 mmol/L (22.0-30.0); Glucose 94 mg/dl (74-100); Total Protein,Serum 6.9 g/dl (6.3-8.2)
[2020-09-02 16:18] LABS: Free T4 (Free Thyroxine) 1.09 ng/dl (0.78-2.19)
[2020-09-02 16:31] LABS: Thyroid Stimulating Hormone 2.17 uIU/mL (0.465-4.68)
== END ==
PROVIDERS: Visit Provider Nurse Practitioner Family
DX: R06.00 Dyspnea, unspecified (principal); I25.10 Atherosclerotic heart disease of native coronary artery without angina pectoris; E78.2 Mixed hyperlipidemia; I10 Essential (primary) hypertension; R06.83 Snoring; R40.0 Somnolence; Z72.0 Tobacco use
CPT/HCPCS: 36415; 80048; 80076; 84439; 84443; 85025

== ENCOUNTER → 2020-09-09 07:46 | Outpatient (CLI) | payer OTHER, SELFPAY ==
--- NOTE | 2020-09-09 07:46 | NM_ITS ---
APPROVED REPORT Exam: Nuclear Stress Test Indication: CAD, High Cholesterol, Tobacco use, Family history Patient Location: Outpatient Stress Tech: Kimberly Ceja [place] Tech:Diamond Bonilla, ARRT, RT (R)(N) Ht: 6 ft 0 in Wt: 163 lbs HR: 93 bpm BP: 143/86 mmHg BSA: 1.95 m2 History: CAD, High Cholesterol, Tobacco use, Family history Procedure: Patient exercised on Miguel protocol 5:31 minutes and sec, resting heart rate 93 bpm, resting blood pressure 143/86 mmHg, with exercise maximum heart rate achived was 160 bpm which is Greater than 85 % of the maximum predicted heart rate and blood pressure was 192/84 mmHg. Test was stopped due to SOA and fatigue. Patient denied any complaint of chest pain. Patient has Adequate exercise capacity, achieved 7.0 METs of workload on treadmill, the blood pressure response to exercise was Adequate. Electrocardiogram Resting electrocardiogram showed sinus rhythm, with exercise there is less than 1.[address] segment depression noted from the baseline EKG. The EKG portion of the exercise Myoview is negative for ischemia. Cardiac Stress and Resting SPECT Images: Cardiac Stress and Resting SPECT images were obtained using technetium 99m Myoview 31.4 mCi stress and 10.99 mCi at rest. Gated SPECT for analysis of segmental wall motion and calculation of the ejection fraction also done. Prone images were also obtained. Cardiac stress and resting SPECT images show uniform myocardial activity without segmental perfusion abnormality, computer derived ejection fraction is 53% with no regional wall motion abnormality, right ventricle is normal size and contractility. Conclusion: 1. The EKG portion of the exercise Myoview is negative for ischemia, patient has adequate exercise capacity achieved 7 mets of workload on treadmill, the blood pressure response to exercise was adequate, there was no exercise-induced chest discomfort. 2. No scintigraphic evidence of reversible ischemia seen, computer derived ejection fraction 53% with no regional wall motion abnormality, right ventricle is normal size and contractility. 3. Normal exercise Myoview study. Electronically signed by : Kaleb Iqbal, 09/09/2020 18:28:33
--- NOTE | 2020-09-09 09:43 | HMH.ITSHM ---
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 []TICAGRELOR METOPROLOL LISINOPRIL ATORVASTATIN ASA
--- NOTE | 2020-09-09 12:19 | CA_ITS ---
APPROVED REPORT Exam: Exercise Treadmill Technologist: Kimberly Ceja, Ht: 6 ft 0 in Wt: 163 lbs BSA: 1.95 m2 HR: 93 bpm BP: 143/86 mmHg Medical History Medications: Lisinopril,,,,, Aspirin,,,,, Atorvastatin,,,,, Ticagrelor,,,,, Metoprolol Succinate ER,,,,, Stress Test Details Test: Manual Treadmill HR Resting HR: 109 bpm Max Heart Rate (APMHR): 168 bpm Max HR Achieved: 167 bpm Target HR (85% APMHR): 142 bpm % of APMHR: 99 Recovery HR: 110 bpm BP Resting BP: 141/78 mmHg Max BP: 192/84 mmHg Recovery BP: 155.0/92.0 mmHg ECG Resting ECG: NSR, ST-T abns inferiorly Clinical Exercise duration: 05:31 min Highest Stage Achieved: Exercise capacity: 7.0 METs Stress ECG Conclusion Exercised 5:31 om Miguel Protocol Max HR: 165 % of PM: 98% Max BP: 192/84 MET's: 7.0 Test stopped due to: SOA, fatigue Symptoms: No CP Arrhythmnias/Ectopy: Occ PVC, rare PAC ST-T Changes: Exaggeration of baseline ST abns in the inferior leads. Conclusion: Non-diagnostic Lexiscan stress. Reynold view images reported separately Test Summary REST . . . . . . . Sitting REST . . . . . . . Standing REST 05:24 0.0 0.0 109 . 141/ 78 . . Stage 1 01:00 10.0 1.7 122 . . . . Stage 1 02:00 10.0 1.7 149 . . . . Stage 1 03:00 10.0 1.7 147 . 192/ 84 . . Stage 2 01:00 12.0 2.5 155 . . . . Stage 2 . . . . . . . Protocol changed to Manual Treadmill Stage 2 02:00 12.0 2.2 161 . . . . Stage 2 02:31 12.0 2.2 167 . . . Stop exercise at 05:31 RECOVERY 01:00 0.0 0.0 143 . 176/ 80 . . RECOVERY 02:00 0.0 0.0 120 . 176/ 80 . . RECOVERY 03:00 0.0 0.0 120 . 160/ 86 . . RECOVERY 04:00 0.0 0.0 115 . 160/ 85 . . RECOVERY 05:00 0.0 0.0 110 . 160/ 85 . . RECOVERY 06:00 0.0 0.0 116 . 155/ 92 . . RECOVERY 06:17 0.0 0.0 108 . 155/ 92 . . Electronically signed by : Kaleb Iqbal, 09/09/2020 18:12:09
== END ==
PROVIDERS: PCP Family Medicine; Visit Provider Nurse Practitioner Family
DX: R06.00 Dyspnea, unspecified (principal); I25.10 Atherosclerotic heart disease of native coronary artery without angina pectoris; I10 Essential (primary) hypertension; E78.2 Mixed hyperlipidemia; R06.83 Snoring; R40.0 Somnolence; Z72.0 Tobacco use
CPT/HCPCS: 78452; 93017; A9502

== ENCOUNTER → 2020-12-19 11:00 | Outpatient (CLI) | payer OTHER, SELFPAY ==
--- NOTE | 2020-12-19 11:01 | CA_ITS ---
APPROVED REPORT Regional Driver: ALVA Laterality: Bilateral Study Quality: Good Indications: dizziness,HTN,CAD,SMOKER Doppler Spectral Velocity Analysis dICA (R) 116.80/45.80 cm/s dICA (L) 93.80/43.20 cm/s Claudia (R) 111.90/39.50 cm/s Claudia (L) 119.60/44.10 cm/s pICA (R) 83.50/33.60 cm/s pICA (L) 98.70/27.60 cm/s dCCA (R) 102.80/27.50 cm/s dCCA (L) 114.10/37.30 cm/s pCCA (R) 107.60/37.10 cm/s pCCA (L) 100.30/23.30 cm/s Vert (R) 28.70/7.20 cm/s Vert (L) 68.00/23.40 cm/s ICA/CCA 1.10 ICA/CCA 1.10 Findings Duplex evaluation demonstrates stenosis of the right proximal internal carotid artery <20% with PSV <140 cm/sec, EDV <100 cm/sec, and IC/CC Ratio <4.0.Duplex evaluation demonstrates stenosis of the left proximal internal carotid artery <20% with PSV <140 cm/sec, EDV <100 cm/sec, and IC/CC Ratio <4.0.Antegrade flow seen bilateral vertebral arteries. Conclusion Duplex evaluation demonstrates stenosis of the right proximal internal carotid artery <20% with PSV <140 cm/sec, EDV <100 cm/sec, and IC/CC Ratio <4.0.Duplex evaluation demonstrates stenosis of the left proximal internal carotid artery <20% with PSV <140 cm/sec, EDV <100 cm/sec, and IC/CC Ratio <4.0.Antegrade flow seen bilateral vertebral arteries. Electronically signed by : Manjit Hilton MD 12/19/2020 16:34:22
== END ==
PROVIDERS: PCP Family Medicine; Visit Provider Physician Assistant
DX: R42 Dizziness and giddiness (principal); I25.10 Atherosclerotic heart disease of native coronary artery without angina pectoris; I10 Essential (primary) hypertension; E78.2 Mixed hyperlipidemia; E87.1 Hypo-osmolality and hyponatremia; F10.29 Alcohol dependence with unspecified alcohol-induced disorder
CPT/HCPCS: 93880

== ENCOUNTER → 2021-06-16 11:54 | Outpatient (CLI) | payer OTHER, SELFPAY ==
--- NOTE | 2021-06-16 12:05 | XR_ITS ---
FINAL REPORT TECHNIQUE: Chest PA & Lateral CLINICAL HISTORY: tobacco use, hx of stents COMPARISON: May 25, 2020 FINDINGS: 2 views of the chest were performed. The heart size is normal. The mediastinum is within normal limits. There is no acute cardiopulmonary process. The lungs are hyperinflated. There are no pleural effusions. There is no pneumothorax. The bony thorax appears intact. IMPRESSION: No acute cardiopulmonary process. Reviewed, Interpreted and Dictated by Justus Iqbal MD Transcribed by Chaya Dodson Authenticated by Justus Iqbal MD on 06/16/2021 12:45:39 PM [facility]
[2021-06-16 12:54] LABS: Basophils # 0.1 K/mm3 (0-0.2); Basophils % 1.3 % (0.1-2.0); Eosinophils # 0.2 K/mm3 (0.0-0.4); Eosinophils % 3.4 % (0.1-12.0); Hematocrit 44.4 % (42.0-52.0); Hemoglobin 14.1 g/dL (14.1-18.0); Lymphocytes # 1.7 K/mm3 (0.7-4.5); Mean Corpuscular HGB Conc 31.8 g/dL (31.8-35.4); Mean Corpuscular Hemoglobin 29.7 pg (27.0-31.2); Mean Corpuscular Volume 93.4 fl (80-94); Mean Platelet Volume 8.1 fl (7.4-10.4); Monocytes # 0.6 K/mm3 (0.1-1.0); Monocytes % 10.8 % (1.7-9.3); Neutrophils # 2.7 K/mm3 (1.8-7.8); Neutrophils % 51.4 % (37.0-80.0); Platelet Count 223 K/mm3 (142-424); Red Blood Count 4.76 M/mm3 (4.60-6.20); Red Cell Distribution Width 13.8 % (11.5-17.5); White Blood Count 5.2 K/mm3 (4.8-10.8)
[2021-06-16 14:19] LABS: Chloride 96 mmol/L (98-107); Potassium 4.3 mmoL/L (3.5-5.1); Sodium 131 mmol/L (136-145)
[2021-06-16 14:21] LABS: Alanine Aminotransferase 45 U/L (12-78); Aspartate Amino Transferase 56 U/L (17-59); Bilirubin,Unconjugated 0.5 mg/dL (0.0-1.1); Blood Urea Nitrogen 4 mg/dl (9-20); Estimated Glomerular Filt Rate 118 ml/min (>60); GFR (African American) 143 ML/MIN (>60)
[2021-06-16 14:22] LABS: Albumin Level 4.7 g/dl (3.5-5.0); Alkaline Phosphatase 60 U/L (38-126); Anion Gap 12.3 mEq/L (5-15); Bilirubin,Direct 0.1 mg/dl (0.0-0.4); Bilirubin,Indirect 0.5 mg/dL (0.0-0.9); Bilirubin,Total 0.6 mg/dl (0.2-1.3); Calcium 9.1 mg/dl (8.4-10.2); Carbon Dioxide 27 mmol/L (22.0-30.0); Cholesterol 113 mg/dl (140-200); Glucose 95 mg/dl (74-100); HDL Cholesterol 76 mg/dl (40-60); Total Protein,Serum 6.8 g/dl (6.3-8.2); Triglycerides 60 mg/dl (30-150); VLDL Cholesterol 12 mg/dL (0-40)
[2021-06-16 14:23] LABS: Chol/HDL Ratio 1.5 (1-3.5)
[2021-06-16 14:33] LABS: Direct LDL Cholesterol 32.32 mg/dL (100-129)
[2021-06-16 14:43] LABS: Free T4 (Free Thyroxine) 1.01 ng/dl (0.78-2.19)
[2021-06-16 14:52] LABS: Thyroid Stimulating Hormone 2.28 uIU/mL (0.465-4.68)
== END ==
PROVIDERS: PCP Family Medicine; Visit Provider Physician Assistant
DX: I25.10 Atherosclerotic heart disease of native coronary artery without angina pectoris (principal); I11.9 Hypertensive heart disease without heart failure; I63.9 Cerebral infarction, unspecified; E78.5 Hyperlipidemia, unspecified; E87.1 Hypo-osmolality and hyponatremia; F10.20 Alcohol dependence, uncomplicated; R94.31 Abnormal electrocardiogram [ECG] [EKG]; E11.9 Type 2 diabetes mellitus without complications; E78.2 Mixed hyperlipidemia; F10.29 Alcohol dependence with unspecified alcohol-induced disorder; F17.200 Nicotine dependence, unspecified, uncomplicated; Z82.49 Family history of ischemic heart disease and other diseases of the circulatory system
CPT/HCPCS: 36415; 71046; 80048; 80061; 80076; 84439; 84443; 85025

== ENCOUNTER → 2022-06-25 09:53 | Outpatient (CLI) | payer OTHER, SELFPAY ==
[2022-06-25 10:50] VITALS: PULSE 67; PULSE 70
== END ==
PROVIDERS: PCP Family Medicine; Visit Provider Physician Assistant
DX: I25.10 Atherosclerotic heart disease of native coronary artery without angina pectoris (principal); I10 Essential (primary) hypertension; E78.5 Hyperlipidemia, unspecified; F10.20 Alcohol dependence, uncomplicated; F17.200 Nicotine dependence, unspecified, uncomplicated; R06.02 Shortness of breath
CPT/HCPCS: 94060; 94640; 94727; 94729

== ENCOUNTER → 2022-12-16 09:23 | Outpatient (CLI) | payer OTHER, SELFPAY ==
[2022-12-16 10:09] LABS: Basophils % 0.8 % (0.1-2.0); Eosinophils # 0.2 K/mm3 (0.0-0.4); Eosinophils % 4.1 % (0.1-12.0); Hematocrit 44.7 % (42.0-52.0); Hemoglobin 14.8 g/dL (14.1-18.0); Lymphocytes # 1.8 K/mm3 (0.7-4.5); Lymphocytes % 35.3 % (10-50); Mean Corpuscular HGB Conc 33.2 g/dL (31.8-35.4); Mean Corpuscular Hemoglobin 29.9 pg (27.0-31.2); Mean Platelet Volume 7.2 fl (7.4-10.4); Monocytes # 0.4 K/mm3 (0.1-1.0); Monocytes % 7.5 % (1.7-9.3); Neutrophils # 2.7 K/mm3 (1.8-7.8); Neutrophils % 52.2 % (37.0-80.0); Platelet Count 269 K/mm3 (142-424); Red Blood Count 4.97 M/mm3 (4.60-6.20); Red Cell Distribution Width 13.2 % (11.5-17.5); White Blood Count 5.1 K/mm3 (4.8-10.8)
[2022-12-16 10:41] LABS: Chloride 98 mmol/L (98-107); Potassium 4.3 mmoL/L (3.5-5.1); Sodium 132 mmol/L (136-145)
[2022-12-16 10:43] LABS: Alanine Aminotransferase 25 U/L (12-78); Alkaline Phosphatase 75 U/L (38-126); Aspartate Amino Transferase 36 U/L (17-59); Bilirubin,Direct 0.3 mg/dl (0.0-0.4); Bilirubin,Indirect 0.2 mg/dL (0.0-0.9); Bilirubin,Total 0.5 mg/dl (0.2-1.3); Bilirubin,Unconjugated 0.2 mg/dL (0.0-1.1); Blood Urea Nitrogen 2 mg/dl (9-20); Estimated Glomerular Filt Rate 118 ml/min (>60); GFR (African American) 142 ML/MIN (>60)
[2022-12-16 10:44] LABS: Albumin Level 4.3 g/dl (3.5-5.0); Anion Gap 11.3 mEq/L (5-15); Calcium 9.3 mg/dl (8.4-10.2); Carbon Dioxide 27 mmol/L (22.0-30.0); Chol/HDL Ratio 1.6 (1-3.5); Cholesterol 141 mg/dl (140-200); Glucose 59 mg/dl (74-100); HDL Cholesterol 90 mg/dl (40-60); Total Protein,Serum 6.6 g/dl (6.3-8.2); Triglycerides 83 mg/dl (30-150); VLDL Cholesterol 17 mg/dL (0-40)
[2022-12-16 10:55] LABS: Direct LDL Cholesterol 51.07 mg/dL (100-129)
[2022-12-16 11:17] LABS: Thyroid Stimulating Hormone 1.19 uIU/mL (0.465-4.68)
== END ==
PROVIDERS: PCP Family Medicine; Visit Provider Nurse Practitioner
DX: I25.10 Atherosclerotic heart disease of native coronary artery without angina pectoris (principal); I10 Essential (primary) hypertension; E78.5 Hyperlipidemia, unspecified; R68.3 Clubbing of fingers; F10.20 Alcohol dependence, uncomplicated; F17.200 Nicotine dependence, unspecified, uncomplicated
CPT/HCPCS: 36415; 80048; 80061; 80076; 83735; 84439; 84443; 85025

== ENCOUNTER 2024-01-11 07:03 | Outpatient (CLI) | payer OTHER, SELFPAY ==
[2024-01-11 09:05] LABS: Albumin Level 4.3 g/dl (3.5-5.0)
[2024-01-11 09:08] LABS: Alanine Aminotransferase 35 U/L (12-78); Alkaline Phosphatase 69 U/L (38-126); Aspartate Amino Transferase 38 U/L (17-59); Bilirubin,Direct 0.2 mg/dl (0.0-0.4); Bilirubin,Total 1.2 mg/dl (0.2-1.3); Cholesterol 186 mg/dl (140-200); Total Protein,Serum 6.5 g/dl (6.3-8.2); Triglycerides 164 mg/dl (30-150); VLDL Cholesterol 33 mg/dL (0-40)
[2024-01-11 09:09] LABS: Chol/HDL Ratio 2.4 (1-3.5); HDL Cholesterol 77 mg/dl (40-60)
[2024-01-11 09:20] LABS: Direct LDL Cholesterol 87.63 mg/dL (100-129)
== END 2024-01-11 23:59 | disposition home or self-care (01) ==
PROVIDERS: PCP Family Medicine; Visit Provider Physician Assistant
DX: I25.10 Atherosclerotic heart disease of native coronary artery without angina pectoris (principal); F17.200 Nicotine dependence, unspecified, uncomplicated; I10 Essential (primary) hypertension; E78.2 Mixed hyperlipidemia; F10.29 Alcohol dependence with unspecified alcohol-induced disorder; I11.9 Hypertensive heart disease without heart failure
CPT/HCPCS: 36415; 80061; 80076

== ENCOUNTER 2024-10-12 18:59 | Emergency (ER) | payer OTHER, SELFPAY ==
[2024-10-12 19:18] VITALS: BP 147/72; PULSE 63; RESP 18; TEMP 36.6; O2SAT 100; BMI 24.4
--- NOTE | 2024-10-12 19:22 | HMH.EDGENADL ---
Discharge Plan Disposition Patient Disposition: Home, Self-Care Condition: Good Prescriptions Prescriptions: No Action metoprolol succinate 25 mg tablet extended release 24 hr 12.5 mg PO DAILY Qty: 90 3RF lisinopril 2.5 mg tablet See Rx Instructions .ROUTE .COMPLEX Qty: 90 3RF Dose Instruction: TAKE 1 TABLET BY MOUTH ONCE DAILY Rx Instructions: TAKE 1 TABLET BY MOUTH ONCE DAILY atorvastatin 40 mg tablet 40 mg PO HS Qty: 90 3RF Anoro Ellipta 62.5-25 mcg/actuation blister with device 1 inh inhalation DAILY PRN prednisone 20 mg tablet 20 mg PO BID 5 Days Qty: 10 0RF naproxen 500 mg tablet 500 mg PO BID Qty: 30 0RF cyclobenzaprine 10 mg tablet 10 mg PO TID PRN (Reason: muscle spasm) Qty: 60 0RF Brilinta 90 mg tablet 90 mg PO BID Referrals Follow up/Referrals: Lauri Nair APRN [Primary Care Provider] - See instructions Activity Restrictions/Add. Instructions Additional Instructions/Restrictions: I recommend following up with my eye doctor here in [place] if you have persistent new or worsening signs or symptoms. You may always return to the ER as needed. Clinical Impressions Clinical Impression: Foreign body of left eye Qualifiers: Encounter type: initial encounter Qualified Code(s): T15.92XA - Foreign body on external eye, part unspecified, left eye, initial encounter Print Language Print Language: [place] Discharge ED Provider: Ray Desir General Adult HPI <KINDRA Alvarenga - Last Filed: 10/12/24 20:25> General Chief complaint: Eye Problems Stated complaint: Foreign Object in L eye Time Seen by Provider: 10/12/24 19:22 Mode of Arrival: Ambulatory Source of Information: Patient Description of Symptoms (Recalled from ER Triage Doc. by RN): Pt states he was on his tractor and the wind blow a piece of rust in his left eye History of Present Illness HPI narrative: Patient presents for evaluation of possible foreign body in his left eye. Patient is thinks that a piece of rust from a tractor landed in his left eye. He did try irrigation at home however the this sensation persist. He states that it is mobile and not focal. He denies any loss of vision or change in his vision. Related Data Home Medications ?Medication ?Instructions ?Recorded ?Confirmed umeclidinium 62.5 mcg-vilanterol 1 inh inhalation DAILY PRN 04/13/24 06/20/24 25 mcg/actuation powdr for inhalation (Anoro Ellipta) ticagrelor 90 mg tablet (Brilinta) 90 mg PO BID 06/29/24 06/29/24 Previous Rx's ?Medication ?Instructions ?Recorded cyclobenzaprine 10 mg tablet 10 mg PO TID PRN muscle spasm #60 07/22/23 tabs atorvastatin 40 mg tablet 40 mg PO HS #90 tabs 12/20/23 lisinopril 2.5 mg tablet See Rx Instructions .Route 12/20/23 .COMPLEX #90 tabs metoprolol succinate 25 mg 12.5 mg (1/2 x 25 mg) PO DAILY #90 12/20/23 tablet,extended release 24 hr tabs naproxen 500 mg tablet 500 mg PO BID #30 tabs 04/13/24 prednisone 20 mg tablet 20 mg PO BID 5 days #10 tabs 04/13/24 Allergies Allergy/AdvReac Type Severity Reaction Status Date / Time No Known Allergies Allergy Verified 06/20/24 08:25 [facility] <KINDRA Alvarenga - Last Filed: 10/12/24 20:25> [facility] Disclaimer: The information contained in this section may have been updated after the patient was seen, as this information can be updated by other users. Medical History Tobacco abuse disorder Tobacco abuse counseling Chronic obstructive pulmonary disease Encounter for screening for malignant neoplasm of lung in current smoker with 30 pack year history or greater Smoking greater than 30 pack years Dyspnea on exertion Tobacco dependence syndrome Decreased stamina Fatigue Daytime somnolence Snoring Dyspnea CAD (coronary artery disease) Surgical History History of hernia surgery History of heart artery stent Family History Other Diabetes Hypertension Social History Smoking Status: Current every day smoker tobacco type: cigarettes packs per day: 2 alcohol intake: current alcohol intake frequency: 3 or more drinks per day counseling provided: provider counseling substance use type: denies use current occupational status: employed Travel in the last 8 weeks?: None household members: spouse housing: house caffeine: Yes Have you lived/traveled outside [place] in past 30 days?: No Contact w/someone who lives/traveled outside [place] past 30 days?: No Exposure to someone with infectious disease in past 14 days?: No Do you have a fever (greater than 100.4 F or 38 C)?: No Have you tested positive for COVID-19?: No Exposed to someone with COVID-19 in past 14 days?: No Do you have a sore throat?: No Do you have a cough?: No Do you have any weakness?: No Do you have any diarrhea?: No Are you experiencing any unusual bleeding?: No Do you have any muscle aches/pain?: No Do you have any abdominal pain?: No Are you experiencing loss of taste or smell?: No Other Medical History Have you received the Flu Vaccine for this season: No Have you received the Pneumonia Vaccine: No <KINDRA Alvarenga - Last Filed: 10/12/24 20:25> ROS Obtained: Yes Systems reviewed as appropriate & no additional complaints except as documented Physical Exam <KINDRA Alvarenga - Last Filed: 10/12/24 20:25> General General appearance: alert and in no apparent distress Respiratory Respiratory exam: Present normal lung sounds bilaterally Cardiovascular Cardiovascular exam: Present regular rate Neurological Exam Neurological exam: Present alert and oriented X3 Medical Decision Making <KINDRA Alvarenga - Last Filed: 10/12/24 20:25> Medical Records Screening: Per USPSTF and CDC recommendations, given the prevalence of disease in our region, it is our hospital?s policy to screen for HIV and viral Hepatitis for all patients aged 18 and over and those with ongoing risk factors. Antonio Inquiry Pt receiving controlled substance: No Vital Signs: 10/12/24 19:18 10/12/24 20:29 Temperature 97.9 F 98.9 F Temperature Source Temporal Artery Scan Oral Pulse Rate 63 Pulse Rate [Right] 63 Respiratory Rate 18 18 Blood Pressure 147/72 H Blood Pressure [Right Arm] 147/72 H Blood Pressure Mean [Right Arm] 97 Blood Pressure Source [Right Arm] Automatic Cuff Blood Pressure Position [Right Arm] Sitting 02 Sat by Pulse Oximetry 100 Oxygen Delivery Method Room Air Room Air Orders (Tests/Meds): ED MEDICATIONS Generic Name Dose Route Start Last Admin Trade Name Freq PRN Reason Stop Dose Admin Eye Irrigation Solution 120 ml 10/12/24 20:35 Eye Wash Irrigation Soln 118ml Bottle OP 10/12/24 20:36 ONCE ONE Fluorescein Sodium 1 mg 10/12/24 20:35 Fluorescein Sodium 1mg Strip OP 10/12/24 20:36 ONCE ONE Tetracaine HCl 0 ml 10/12/24 20:35 Tetracaine 0.5% Opth Heather 15ml OP 10/12/24 20:36 ONCE ONE Medical Decision Narrative: In summary patient is a 54-year-old male who presents to the emergency department for evaluation of foreign body sensation in his left eye. Patient is hemodynamically stable upon arrival, afebrile. Physical exam is remarkable for conjunctival irritation however extraocular movements are intact without pain. I am unable to appreciate a visible foreign body on initial exam. Differential diagnosis includes corneal abrasion versus foreign body versus conjunctivitis etc. Initial workup will be conducted with exam under topical anesthesia. Initial interventions include tetracaine drops. Initial workup performed by me and after tetracaine was applied and adequate anesthesia was achieved eye was examined under black light. I found no evidence of corneal abrasion corneal foreign body or foreign body loose in the conjunctiva recesses. I have irrigated the eye extensively with saline and we will await anesthetic wear off to see if the sensation persists.. Upon repeat evaluation patient has had no return of the foreign body sensation. Given this patient is appropriate for discharge with recommendations that should he have persistent new or worsening signs or symptoms to follow-up with ophthalmology or return to the emergency department as needed. Patient verbalized understanding agreement. <Ray Desir MD - Last Filed: 10/12/24 20:37> Vital Signs: 10/12/24 19:18 10/12/24 20:29 Temperature 97.9 F 98.9 F Temperature Source Temporal Artery Scan Oral Pulse Rate 63 Pulse Rate [Right] 63 Respiratory Rate 18 18 Blood Pressure 147/72 H Blood Pressure [Right Arm] 147/72 H Blood Pressure Mean [Right Arm] 97 Blood Pressure Source [Right Arm] Automatic Cuff Blood Pressure Position [Right Arm] Sitting 02 Sat by Pulse Oximetry 100 Oxygen Delivery Method Room Air Room Air Orders (Tests/Meds): ED MEDICATIONS Generic Name Dose Route Start Last Admin Trade Name Freq PRN Reason Stop Dose Admin Eye Irrigation Solution 120 ml 10/12/24 20:35 Eye Wash Irrigation Soln 118ml Bottle OP 10/12/24 20:36 ONCE ONE Fluorescein Sodium 1 mg 10/12/24 20:35 Fluorescein Sodium 1mg Strip OP 10/12/24 20:36 ONCE ONE Tetracaine HCl 0 ml 10/12/24 20:35 Tetracaine 0.5% Opth Heather 15ml OP 10/12/24 20:36 ONCE ONE Medical Decision Narrative: In summary patient is a 54-year-old male who presents to the emergency department for evaluation of foreign body sensation in his left eye. Patient is hemodynamically stable upon arrival, afebrile. Physical exam is remarkable for conjunctival irritation however extraocular movements are intact without pain. I am unable to appreciate a visible foreign body on initial exam. Differential diagnosis includes corneal abrasion versus foreign body versus conjunctivitis etc. Initial workup will be conducted with exam under topical anesthesia. Initial interventions include tetracaine drops. Initial workup performed by me and after tetracaine was applied and adequate anesthesia was achieved eye was examined under black light. I found no evidence of corneal abrasion corneal foreign body or foreign body loose in the conjunctiva recesses. I have irrigated the eye extensively with saline and we will await anesthetic wear off to see if the sensation persists.. Upon repeat evaluation patient has had no return of the foreign body sensation. Given this patient is appropriate for discharge with recommendations that should he have persistent new or worsening signs or symptoms to follow-up with ophthalmology or return to the emergency department as needed. Patient verbalized understanding agreement. I was consulted by the AMEE, and we discussed the complexity of the problems being addressed. I approved the treatment and management plan for this patient's care in the Emergency Department, thus performing a substantive portion of the medical decision making. Ray Desir MD Critical Care <KINDRA Alvarenga - Last Filed: 10/12/24 20:25> Critical Care Time Critical Care Time: No
[2024-10-12 20:29] VITALS: BP 147/72; PULSE 63; RESP 18; TEMP 37.2; O2SAT 100
[2024-10-12] MEDS: EYE WASH IRRIGATION SOLN 118ML BOTTLE 120 ML OP (20:36)
[2024-10-12] MEDS: FLUORESCEIN SODIUM 1MG STRIP 1 MG OP (20:38)
[2024-10-12] MEDS: TETRACAINE 0.5% OPTH SOL 15ML OP (20:38)
== END 2024-10-12 20:30 | disposition home or self-care (01) ==
PROVIDERS: Emergency Provider Emergency Medicine; PCP Nurse Practitioner Family
DX: T15.92XA Foreign body on external eye, part unspecified, left eye, initial encounter (principal); J44.9 Chronic obstructive pulmonary disease, unspecified; F17.210 Nicotine dependence, cigarettes, uncomplicated
CPT/HCPCS: 99283

== ENCOUNTER 2024-12-24 08:57 | Outpatient (CLI) | payer OTHER, SELFPAY ==
[2024-12-24 09:31] LABS: Hematocrit 43.0 % (42.0-52.0); Hemoglobin 14.8 g/dL (14.1-18.0); Immature Granulocytes % 0.4 %; Mean Corpuscular HGB Conc 34.4 g/dL (31.8-35.4); Mean Corpuscular Hemoglobin 30.5 pg (27.0-31.2); Mean Corpuscular Volume 88.7 fl (80-94); Nucleated Red Blood Cells % 0 %; Platelet Count 252 K/mm3 (142-424); Red Blood Count 4.85 M/mm3 (4.60-6.20); Red Cell Distribution Width-SD 40.1 fL; White Blood Count 5.2 K/mm3 (4.8-10.8)
[2024-12-24 09:43] LABS: Albumin Level 4.2 g/dl (3.5-5.0)
[2024-12-24 09:44] LABS: Chloride 98 mmol/L (98-107); Potassium 4.1 mmoL/L (3.5-5.1); Sodium 132 mmol/L (136-145)
[2024-12-24 09:46] LABS: Alanine Aminotransferase 43 U/L (12-78); Anion Gap 10.1 mEq/L (5-15); Aspartate Amino Transferase 50 U/L (17-59); Bilirubin,Unconjugated 0.4 mg/dL (0.0-1.1); Blood Urea Nitrogen 3 mg/dl (9-20); Carbon Dioxide 28 mmol/L (22.0-30.0); Cholesterol 174 mg/dl (140-200); Creatinine,Serum 0.80 mg/dl (0.66-1.25); Estimated Glomerular Filt Rate 100 ml/min (>60); GFR (African American) 121 ML/MIN (>60); Total Protein,Serum 7.2 g/dl (6.3-8.2); Triglycerides 130 mg/dl (30-150)
[2024-12-24 09:47] LABS: Alkaline Phosphatase 84 U/L (38-126); Bilirubin,Direct 0.1 mg/dl (0.0-0.4); Bilirubin,Indirect 0.4 mg/dL (0.0-0.9); Bilirubin,Total 0.5 mg/dl (0.2-1.3); Calcium 9.8 mg/dl (8.4-10.2); Glucose 86 mg/dl (74-100); HDL Cholesterol 90 mg/dl (40-60); Magnesium 2.2 mg/dl (1.6-2.3)
[2024-12-24 10:05] LABS: Free T4 (Free Thyroxine) 0.87 ng/dl (0.78-2.19)
[2024-12-24 11:34] LABS: Thyroid Stimulating Hormone 0.94 uIU/mL (0.465-4.68)
== END 2024-12-24 23:59 | disposition home or self-care (01) ==
LOC: LAB 08:58
PROVIDERS: PCP Family Medicine; Visit Provider Nurse Practitioner
DX: I25.10 Atherosclerotic heart disease of native coronary artery without angina pectoris (principal); I10 Essential (primary) hypertension
CPT/HCPCS: 36415; 80048; 80061; 80076; 83735; 84439; 84443; 85025